=== PATIENT | female | born 1955 | race Hispanic/Latino ===

== ENCOUNTER 2017-09-13 12:30 | Inpatient (IN) | payer MEDICARE ==
[~2017-09-13] VITALS: Ht 154.9 cm; Wt 44.1 kg
[2017-09-19 15:22] VITALS: BP 117/51
[2017-09-19] MEDS ORDERED: ALBU6.7H IH (15:36)
[2017-09-19] MEDS ORDERED: ATOR20TA PO (15:36)
[2017-09-19] MEDS ORDERED: TYL3 PO (15:36)
[2017-09-19] MEDS ORDERED: CETI10TA57 PO (15:36)
[2017-09-19] MEDS ORDERED: ONDA4TAB9 PO (15:36)
[2017-09-19] MEDS ORDERED: FLUT16H NASAL (15:36)
[2017-09-19] MEDS: CLINDAMYCIN 900 MG/D5% WATER 50 ML IV SCH (16:15)
[2017-09-20] VITALS (23 sets, daily range): BP systolic 92–181; BP diastolic 46–88
[2017-09-20] MEDS ORDERED: CLINDAMYCIN 900 MG/D5% WATER 50 ML IV ONE (11:45)
[2017-09-20] MEDS ORDERED: LACTATED RINGERS 1000ML 1,000 ML IV ONE (11:45)
[2017-09-20] MEDS ORDERED: ACETAMINOPHEN EXTRA STRENGTH 500 MG TABLET ONE (13:28)
[2017-09-20] MEDS ORDERED: CELECOXIB 200 MG CAP ONE (13:29)
[2017-09-20] MEDS ORDERED: KETOROLAC TROMETHAMINE 15MG/ML ONE (13:29)
[2017-09-20] MEDS ORDERED: OXYCODONE HCL 10 MG TAB.SR.12H PO ONE (13:29)
[2017-09-20] MEDS ORDERED: CLINDAMYCIN PHOSPHATE 150 MG/ML 6ML VIAL ONE (13:55)
[2017-09-20] MEDS ORDERED: TRANEXAMIC ACID 1000MG/10ML IV ONE (13:55)
[2017-09-20] MEDS ORDERED: MIDAZOLAM HCL 1 MG/ML 2ML VIAL ONE (14:05)
[2017-09-20] MEDS ORDERED: FENTANYL CITRATE PF 50 MCG/1 ML 2ML VIAL ONE (14:07)
[2017-09-20] MEDS: CLINDAMYCIN 900 MG/D5% WATER 50 ML IV SCH (14:45)
[2017-09-20] MEDS ORDERED: DEXAMETHASONE SOD PHOSPHATE 10MG/ML 1ML VIAL ONE (16:01)
[2017-09-20] MEDS ORDERED: LIDOCAINE PF 2% 5ML ABBOJECT ONE (16:01)
[2017-09-20] MEDS ORDERED: PHENYLEPHRINE HCL 10 MG/ML 1ML VIAL IV ONE ×2 (16:01→18:14)
[2017-09-20] MEDS ORDERED: ONDANSETRON HCL MDV 20ML 2 MG/ML VIAL ONE ×2 (16:01→18:15)
[2017-09-20] MEDS ORDERED: ROCURONIUM BROMIDE 10MG/1ML 5ML VL ONE ×2 (16:01→18:14)
[2017-09-20] MEDS ORDERED: NEOSTIGMINE 5MG/5ML SYR IV ONE (18:14)
[2017-09-20] MEDS ORDERED: GLYCOPYRROLATE 0.2 MG/ML 5 ML VIAL ONE ×2 (18:14→18:15)
[2017-09-20] MEDS ORDERED: DiphenhydrAMINE HCL 50 MG/ML VIAL IVP PRN (18:15)
[2017-09-20] MEDS ORDERED: POTASSIUM CHLORIDE 20 MEQ ERTAB PO PRN (18:15)
[2017-09-20] MEDS ORDERED: ACETAMINOPHEN EXTRA STRENGTH 500 MG TABLET PO PRN (18:15)
[2017-09-20] MEDS ORDERED: POTASSIUM CHLORIDE 20MEQ/100ML 100 ML IV PRN (18:15)
[2017-09-20] MEDS ORDERED: KETOROLAC TROMETHAMINE 15MG/ML IV PRN (18:15)
[2017-09-20] MEDS ORDERED: TRAMADOL HCL 50 MG TABLET PO PRN (18:15)
[2017-09-20] MEDS ORDERED: POTASSIUM CHLORIDE 10% ELIXIR 20 MEQ/15 ML UDCUP PO PRN (18:15)
[2017-09-20] MEDS ORDERED: LIDOCAINE HCL-MPF 1% 2ML VIAL IVP PRN (18:15)
[2017-09-20] MEDS ORDERED: TEMAZEPAM 15 MG CAPSULE PO PRN (18:15)
[2017-09-20] MEDS ORDERED: CALCIUM CARBONATE 500 MG TABLET PO PRN (18:15)
[2017-09-20] MEDS ORDERED: ONDANSETRON HCL MDV 20ML 2 MG/ML VIAL IVP PRN (18:15)
[2017-09-20] MEDS ORDERED: FERROUS FUMARATE 324 MG TABLET PO PRN (18:15)
[2017-09-20] MEDS ORDERED: MEPERIDINE-PF 25 MG/ML SYG ONE (18:44)
[2017-09-20] MEDS: SODIUM CHLORIDE 0.9% 1000ML 1,000 ML IV SCH (21:09)
[2017-09-20] MEDS ORDERED: ONDANSETRON 4 MG TABLET PO PRN (21:45)
[2017-09-20] MEDS ORDERED: VENTOLIN HFA IH PRN (21:45)
[2017-09-20] MEDS: CLINDAMYCIN 900 MG/D5% WATER 50 ML IVPB SCH (22:43)
[2017-09-20] MEDS ORDERED: ACETAMINOPHEN-CODEINE 300/30MG TAB ONE (22:50)
[2017-09-20] MEDS: FAMOTIDINE 20MG TAB 20 MG TAB PO SCH (22:51)
[2017-09-20] MEDS: CELECOXIB 200 MG CAP PO SCH (22:51)
[2017-09-20] MEDS: PREGABALIN 25 MG CAP PO SCH (22:51)
[2017-09-21 00:25] VITALS: BP 107/54
[2017-09-21] MEDS: SODIUM CHLORIDE 0.9% 1000ML 1,000 ML IV SCH (03:27)
[2017-09-21 04:00] VITALS: BP 107/51
[2017-09-21 05:07] LABS: HEMATOCRIT 30.7 % (36-48); MEAN CORPUSCULAR HEMOGLOBIN 30.3 pg (27.0-33.0); MEAN CORPUSCULAR HGB CONC 33.6 g/dL (32.0-36.0); MEAN CORPUSCULAR VOLUME 90.3 fL (79-99); PLATELET COUNT (AUTO) 207 K/uL (130-400); RED BLOOD CELL COUNT(AUTO) 3.41 MIL/uL (4.00-5.50); RED CELL DISTRIBUTION WIDTH 13.7 % (11.0-15.5); WHITE BLOOD COUNT (AUTO) 13.4 K/uL (4.8-10.8)
[2017-09-21 05:25] LABS: CREATININE 1.2 mg/dL (0.5-1.5); POTASSIUM 5.2 mmol/L (3.5-5.1)
[2017-09-21] MEDS: CLINDAMYCIN 900 MG/D5% WATER 50 ML IVPB SCH (06:00)
[2017-09-21 07:36] VITALS: BP 88/50
[2017-09-21] MEDS: ATORVASTATIN CALCIUM 10 MG TABLET PO SCH (08:04)
[2017-09-21] MEDS: POLYETHYLENE GLYCOL 3350 17 GM POWD.PACK PO SCH (08:04)
[2017-09-21] MEDS: FAMOTIDINE 20MG TAB 20 MG TAB PO SCH ×2 (08:04→19:15)
[2017-09-21] MEDS: CELECOXIB 200 MG CAP PO SCH ×2 (08:04→19:15)
[2017-09-21] MEDS: PREGABALIN 25 MG CAP PO SCH ×2 (08:04→19:15)
[2017-09-21] MEDS: LORATADINE 10 MG TABLET PO SCH (08:04)
[2017-09-21] MEDS: ACETAMINOPHEN-CODEINE 300/30MG TAB PO PRN ×3 (08:07→19:16)
[2017-09-21] MEDS: FLUTICASONE PROPIONATE 50MCG/SPRAY 16 GM BOTTLE EN SCH (08:38)
[2017-09-21] MEDS: APIXABAN 2.5 MG TABLET PO SCH ×2 (09:34→19:15)
[2017-09-21 11:52] VITALS: BP 154/63
[2017-09-21 16:00] VITALS: BP 86/45
[2017-09-21 20:00] VITALS: BP 95/43
[2017-09-22 00:09] VITALS: BP 91/42
[2017-09-22] MEDS: ACETAMINOPHEN-CODEINE 300/30MG TAB PO PRN ×3 (04:08→14:58)
[2017-09-22 04:10] VITALS: BP 93/63
[2017-09-22 07:38] VITALS: BP 106/48
[2017-09-22] MEDS: CELECOXIB 200 MG CAP PO SCH (09:05)
[2017-09-22] MEDS: FAMOTIDINE 20MG TAB 20 MG TAB PO SCH (09:05)
[2017-09-22] MEDS: LORATADINE 10 MG TABLET PO SCH (09:05)
[2017-09-22] MEDS: POLYETHYLENE GLYCOL 3350 17 GM POWD.PACK PO SCH (09:05)
[2017-09-22] MEDS: PREGABALIN 25 MG CAP PO SCH (09:05)
[2017-09-22] MEDS: APIXABAN 2.5 MG TABLET PO SCH (09:05)
[2017-09-22] MEDS: ATORVASTATIN CALCIUM 10 MG TABLET PO SCH (09:05)
[2017-09-22] MEDS: FLUTICASONE PROPIONATE 50MCG/SPRAY 16 GM BOTTLE EN SCH (09:06)
[2017-09-22 11:17] VITALS: BP 93/52
[2017-09-22] MEDS ORDERED: BISACODYL 10 MG SUPP.RECT RC ONE (15:27)
[2017-09-22 16:12] VITALS: BP 122/45
[2017-09-22] MEDS ORDERED: APIX2.5T PO (16:17)
[2017-09-22] MEDS ORDERED: TYL3 PO (16:17)
[2017-09-23] MEDS ORDERED: BISACODYL 10 MG SUPP.RECT RC PRN (18:15)
== END 2017-09-22 19:45 | disposition home health service (06) | DRG 470 ==
LOC: EDSTATUS 09-19 14:30 → DAHIP 09-20 11:04 → 4AH 09-20 19:40
PROVIDERS: ADMIT Orthopaedic Surgery; ATTEND Orthopaedic Surgery
PROC: 0SR90JZ Replacement of Right Hip Joint with Synthetic Substitute, Open Approach (ICD-10-PCS; principal; 2017-09-20 14:35)
DX: M87.851 Other osteonecrosis, right femur (principal); E78.2 Mixed hyperlipidemia; G89.4 Chronic pain syndrome; I10 Essential (primary) hypertension; J45.909 Unspecified asthma, uncomplicated; Z82.49 Family history of ischemic heart disease and other diseases of the circulatory system
CPT/HCPCS: 36415; 73503; 80048; 85027; 88304; 88311; 96374; 97039; C1776; J1100; J1885; J2001; J2175; J2250; J2370; J2710; J3010; J3490; J7120

== ENCOUNTER → 2018-10-16 | Outpatient (CLI) | payer MEDICARE ==
[~2018-10-16] MED LIST: ALBU6.7H IH; APIX2.5T PO; ATOR20TA PO; CETI10TA57 PO; FLUT16H NASAL; ONDA4TAB9 PO; TYL3 PO
== END | disposition home or self-care (01) ==
LOC: RAH 10:36
PROVIDERS: ATTEND Anesthesiology
DX: M51.15 Intervertebral disc disorders with radiculopathy, thoracolumbar region (principal)
CPT/HCPCS: 72148

== ENCOUNTER → 2020-06-11 | Outpatient (CLI) | payer MEDICARE ==
[~2020-06-11] VITALS: Ht 152.4 cm; Wt 51.3 kg
[~2020-06-11] MED LIST changes: -ALBU6.7H IH; +ALBU6.7H9 IH; +ONDA-104 PO; -ONDA4TAB9 PO; +REGADENOSON 0.4 MG/5 ML PF SYG IVP SCH
== END | disposition home or self-care (01) ==
LOC: SHCH 07:30
PROVIDERS: ATTEND Internal Medicine Cardiovascular Disease
DX: R07.9 Chest pain, unspecified (principal)
CPT/HCPCS: 78452; 93017; 96374; A9500 ×2; J2785

== ENCOUNTER → 2020-08-05 | Outpatient (CLI) | payer MEDICARE ==
[~2020-08-05] MED LIST changes: +IOHEXOL-350 50ML VIAL IV ONE; -REGADENOSON 0.4 MG/5 ML PF SYG IVP SCH
== END | disposition home or self-care (01) ==
LOC: RAH 08:35
PROVIDERS: ATTEND Internal Medicine Cardiovascular Disease
DX: I70.8 Atherosclerosis of other arteries (principal); K57.30 Diverticulosis of large intestine without perforation or abscess without bleeding; I70.0 Atherosclerosis of aorta; I71.3 Abdominal aortic aneurysm, ruptured
CPT/HCPCS: 75635; Q9967

== ENCOUNTER 2020-08-17 05:45 | Inpatient (IN) | payer MEDICARE ==
[2020-08-14 12:11] LABS: BASOPHILS % (AUTO) 0.4 % (0.0-5.0); EOSINOPHILS % (AUTO) 3.1 % (0.0-8.0); HEMATOCRIT 33.5 % (36-48); LYMPHOCYTES % (AUTO) 28.6 % (21.0-51.0); MEAN CORPUSCULAR HEMOGLOBIN 28.5 pg (27.0-33.0); MEAN CORPUSCULAR HGB CONC 32.5 g/dL (32.0-36.0); MEAN CORPUSCULAR VOLUME 87.7 fL (79-99); MONOCYTES % (AUTO) 5.9 % (3.0-13.0); NEUTROPHILS % (AUTO) 61.8 % (40.0-77.0); PLATELET COUNT (AUTO) 307 K/uL (130-400); RED BLOOD CELL COUNT(AUTO) 3.82 MIL/uL (4.00-5.50); RED CELL DISTRIBUTION WIDTH 14.6 % (11.0-15.5); WHITE BLOOD COUNT (AUTO) 8.2 K/uL (4.8-10.8)
[2020-08-14 12:19] LABS: CREATININE 0.9 mg/dL (0.5-1.5); POTASSIUM 4.2 mmol/L (3.5-5.1)
[2020-08-14 14:48] VITALS: BP 132/48
[2020-08-17] VITALS (13 sets, daily range): BP systolic 95–125; BP diastolic 32–57
[~2020-08-17] VITALS: Ht 152.4 cm; Wt 51.8 kg
[~2020-08-17 05:45] MED LIST changes: +AEC81 PO; -ALBU6.7H9 IH; -APIX2.5T PO; -ATOR20TA PO; +ATOR40TA69 PO; -FLUT16H NASAL; -IOHEXOL-350 50ML VIAL IV ONE; +METO50TA18 PO; -ONDA-104 PO; +TICA90TA PO
[2020-08-17] MEDS ORDERED: 0.9%NACL 1000ML 1,000 ML IV ONE (06:28)
[2020-08-17] MEDS ORDERED: LIDOCAINE HCL 2% JELLY 5 ML ONE (06:28)
[2020-08-17] MEDS ORDERED: HEPARIN 10,000 UNIT/10ML (1,000 UNIT/ML) VIAL ONE (07:20)
[2020-08-17] MEDS ORDERED: IODIXANOL 320 MG/ML 100 ML VIAL ONE ×2 (07:20→08:49)
[2020-08-17] MEDS ORDERED: NICARDIPINE 25MG INJ IV ONE (07:20)
[2020-08-17] MEDS ORDERED: NITROGLYCERIN 2 MG VIAL IV ONE (07:20)
[2020-08-17] MEDS ORDERED: LIDOCAINE HCL 400MG/20ML VIAL ONE ×2 (07:21→09:17)
[2020-08-17] MEDS ORDERED: FENTANYL CITRATE PF 50 MCG/1 ML 2ML VIAL ONE ×2 (07:21→08:31)
[2020-08-17] MEDS ORDERED: MIDAZOLAM HCL 1 MG/ML 2ML VIAL ONE ×3 (07:21→10:16)
[2020-08-17] MEDS ORDERED: ONDANSETRON 4MG INJ IVP PRN (12:00)
[2020-08-17] MEDS ORDERED: ASPIRIN 81MG CHEW TAB ONE (12:21)
[2020-08-17] MEDS ORDERED: TICAGRELOR 90 MG TABLET ONE (12:21)
[2020-08-17] MEDS ORDERED: MORPHINE 5 MG/ML VIAL (5MG OR GREATER DOSE) IVP SCH (14:18)
[2020-08-17] MEDS ORDERED: MORPHINE 4 MG SYG IVP SCH (14:19)
[2020-08-17] MEDS: ACETAMINOPHEN WITH CODEINE 1 TAB TAB PO PRN (14:46)
[2020-08-17] MEDS ORDERED: HYDROMORPHONE 0.5 MG SYG (0.5MG/0.5ML) IVP PRN (15:45)
[2020-08-17] MEDS ORDERED: 0.9% NACL 250ML 250 ML IV ONE (17:28)
[2020-08-17] MEDS: METOPROLOL TARTRATE 50 MG TAB PO SCH (21:00)
[2020-08-17] MEDS: ATORVASTATIN 40 MG TABLET PO SCH (22:41)
[2020-08-17] MEDS: TICAGRELOR 90 MG TABLET PO SCH (22:41)
[2020-08-18 04:34] VITALS: BP 102/41
[2020-08-18 04:59] LABS: HEMATOCRIT 24.7 % (36-48); MEAN CORPUSCULAR VOLUME 87.6 fL (79-99); RED BLOOD CELL COUNT(AUTO) 2.82 MIL/uL (4.00-5.50); WHITE BLOOD COUNT (AUTO) 7.3 K/uL (4.8-10.8)
[2020-08-18 05:16] LABS: CREATININE 1.2 mg/dL (0.5-1.5); POTASSIUM 3.7 mmol/L (3.5-5.1)
[2020-08-18] MEDS: PANTOPRAZOLE 40 MG TAB DR PO SCH (08:01)
[2020-08-18] MEDS: TICAGRELOR 90 MG TABLET PO SCH ×2 (08:01→21:48)
[2020-08-18] MEDS: ASPIRIN 81MG CHEW TAB PO SCH (08:01)
[2020-08-18 08:55] VITALS: BP 101/28
[2020-08-18] MEDS: METOPROLOL TARTRATE 50 MG TAB PO SCH (09:00)
[2020-08-18 10:25] LABS: HEMATOCRIT 24.7 % (36-48)
[2020-08-18] MEDS ORDERED: IRON SUCROSE COMPLEX 300 MG in 0.9%NACL 50ML 50 ML IV SCH (10:45)
[2020-08-18] MEDS ORDERED: COMPOUND IV MISC 1 EACH IVSOLN MISC PRN (10:45)
[2020-08-18] MEDS ORDERED: PHARMACY COMMUNICATION MISC SCH (10:45)
[2020-08-18 12:22] VITALS: BP 108/39
[2020-08-18 15:27] VITALS: BP 130/39
[2020-08-18] MEDS: ACETAMINOPHEN WITH CODEINE 1 TAB TAB PO PRN ×2 (16:15→20:10)
[2020-08-18 19:42] VITALS: BP 120/50
[2020-08-18] MEDS: ATORVASTATIN 40 MG TABLET PO SCH (21:48)
[2020-08-19] VITALS (10 sets, daily range): BP systolic 63–113; BP diastolic 32–50
[2020-08-19] MEDS ORDERED: KETOROLAC 30MG VIAL (30MG/ML) ONE (00:15)
[2020-08-19] MEDS: KETOROLAC 15MG/ML VIAL (15MG/ML) IV SCH ×2 (00:15→19:46)
[2020-08-19] MEDS: METOPROLOL TARTRATE 25 MG TAB PO SCH ×2 (01:37→07:52)
[2020-08-19] MEDS ORDERED: 0.9% NACL 500ML IV.SOLN 500 ML IV ONE (05:07)
[2020-08-19 05:09] LABS: HEMATOCRIT 22.4 % (36-48)
[2020-08-19 08:14] LABS: BASOPHILS % (AUTO) 0.2 % (0.0-5.0); EOSINOPHILS % (AUTO) 1.8 % (0.0-8.0); LYMPHOCYTES % (AUTO) 12.6 % (21.0-51.0); MEAN CORPUSCULAR HEMOGLOBIN 28.9 pg (27.0-33.0); MEAN CORPUSCULAR HGB CONC 32.7 g/dL (32.0-36.0); MEAN CORPUSCULAR VOLUME 88.1 fL (79-99); MONOCYTES % (AUTO) 3.5 % (3.0-13.0); NEUTROPHILS % (AUTO) 81.6 % (40.0-77.0); PLATELET COUNT (AUTO) 156 K/uL (130-400); RED BLOOD CELL COUNT(AUTO) 2.53 MIL/uL (4.00-5.50); RED CELL DISTRIBUTION WIDTH 15.4 % (11.0-15.5)
[2020-08-19 08:20] LABS: CREATININE 1.3 mg/dL (0.5-1.5); POTASSIUM 3.8 mmol/L (3.5-5.1)
[2020-08-19] MEDS: ASPIRIN 81MG CHEW TAB PO SCH (09:37)
[2020-08-19] MEDS: TICAGRELOR 90 MG TABLET PO SCH ×2 (09:37→20:59)
[2020-08-19] MEDS: PANTOPRAZOLE 40 MG TAB DR PO SCH (09:37)
[2020-08-19] MEDS: ACETAMINOPHEN WITH CODEINE 1 TAB TAB PO PRN ×2 (16:51→21:10)
[2020-08-19 17:55] LABS: TROPONIN I 0.06 ng/mL (0.00-0.06)
[2020-08-19] MEDS: ATORVASTATIN 40 MG TABLET PO SCH (21:00)
[2020-08-20 03:33] VITALS: BP 116/83
[2020-08-20 05:27] LABS: BASOPHILS % (AUTO) 0.1 % (0.0-5.0); EOSINOPHILS % (AUTO) 1.6 % (0.0-8.0); HEMATOCRIT 34.2 % (36-48); LYMPHOCYTES % (AUTO) 9.3 % (21.0-51.0); MEAN CORPUSCULAR HEMOGLOBIN 28.8 pg (27.0-33.0); MEAN CORPUSCULAR HGB CONC 32.7 g/dL (32.0-36.0); MEAN CORPUSCULAR VOLUME 87.9 fL (79-99); MONOCYTES % (AUTO) 5.3 % (3.0-13.0); NEUTROPHILS % (AUTO) 83.1 % (40.0-77.0); PLATELET COUNT (AUTO) 156 K/uL (130-400); RED BLOOD CELL COUNT(AUTO) 3.89 MIL/uL (4.00-5.50); RED CELL DISTRIBUTION WIDTH 15.5 % (11.0-15.5); WHITE BLOOD COUNT (AUTO) 10.9 K/uL (4.8-10.8)
[2020-08-20 05:30] LABS: CREATININE 1.1 mg/dL (0.5-1.5)
[2020-08-20] MEDS: CETIRIZINE HCL 5 MG TABLET PO PRN (07:53)
[2020-08-20] MEDS: TICAGRELOR 90 MG TABLET PO SCH ×2 (07:53→20:54)
[2020-08-20] MEDS: ACETAMINOPHEN WITH CODEINE 1 TAB TAB PO PRN ×3 (07:54→23:14)
[2020-08-20] MEDS: PANTOPRAZOLE 40 MG TAB DR PO SCH (07:54)
[2020-08-20] MEDS: ASPIRIN 81MG CHEW TAB PO SCH (07:54)
[2020-08-20 08:09] VITALS: BP 146/50
[2020-08-20 09:01] LABS: HEMATOCRIT 28.2 % (36-48); MEAN CORPUSCULAR HEMOGLOBIN 28.7 pg (27.0-33.0); MEAN CORPUSCULAR HGB CONC 33.3 g/dL (32.0-36.0); RED BLOOD CELL COUNT(AUTO) 3.28 MIL/uL (4.00-5.50); RED CELL DISTRIBUTION WIDTH 15.2 % (11.0-15.5); WHITE BLOOD COUNT (AUTO) 9.4 K/uL (4.8-10.8)
[2020-08-20 09:11] LABS: CREATININE 1.2 mg/dL (0.5-1.5); POTASSIUM 3.7 mmol/L (3.5-5.1)
[2020-08-20 09:45] LABS: APPEARANCE,URINE TURBID (CLEAR); BILIRUBIN,URINE NEGATIVE (NEGATIVE); COLOR,URINE YELLOW (YELLOW); GLUCOSE, URINE (UA) NEGATIVE (NEGATIVE); KETONES,URINE NEGATIVE (NEGATIVE); LEUKOCYTE ESTERASE ,URINE LARGE (NEGATIVE); NITRATE,URINE NEGATIVE (NEGATIVE); OCCULT BLOOD,URINE MODERATE (NEGATIVE); PH,URINE 5.5 (5.0-8.0); PROTEIN,URINE 30 mg/dL (NEGATIVE); UROBILINOGEN,URINE 0.2 mg/dL (0.2-1.0)
[2020-08-20 09:52] LABS: BACTERIA,URINE Many /HPF (None Seen); SQUAMOUS EPITHELIAL CELL,UR Rare /HPF (0-2); WBC,URINE TNTC /HPF (0-1)
[2020-08-20] MEDS: LEVOFLOXACIN 500 MG/D5W 100 ML 100 ML IV SCH (11:24)
[2020-08-20 11:58] VITALS: BP 101/36
[2020-08-20 16:15] VITALS: BP 135/41
[2020-08-20 19:08] VITALS: BP 96/30
[2020-08-20] MEDS: ATORVASTATIN 40 MG TABLET PO SCH (20:54)
[2020-08-20 22:56] VITALS: BP 114/41
[2020-08-20] MEDS: KETOROLAC 15MG/ML VIAL (15MG/ML) IV SCH (23:20)
[2020-08-21 03:50] VITALS: BP 119/62
[2020-08-21] MEDS: ACETAMINOPHEN WITH CODEINE 1 TAB TAB PO PRN ×4 (04:00→21:54)
[2020-08-21 05:18] LABS: BASOPHILS % (AUTO) 0.1 % (0.0-5.0); EOSINOPHILS % (AUTO) 1.3 % (0.0-8.0); HEMATOCRIT 32.2 % (36-48); LYMPHOCYTES % (AUTO) 10.9 % (21.0-51.0); MEAN CORPUSCULAR HGB CONC 33.2 g/dL (32.0-36.0); MEAN CORPUSCULAR VOLUME 87.3 fL (79-99); MONOCYTES % (AUTO) 7.7 % (3.0-13.0); NEUTROPHILS % (AUTO) 79.4 % (40.0-77.0); PLATELET COUNT (AUTO) 154 K/uL (130-400); RED BLOOD CELL COUNT(AUTO) 3.69 MIL/uL (4.00-5.50); RED CELL DISTRIBUTION WIDTH 15.8 % (11.0-15.5); WHITE BLOOD COUNT (AUTO) 9.9 K/uL (4.8-10.8)
[2020-08-21 05:34] LABS: CREATININE 1.2 mg/dL (0.5-1.5); MAGNESIUM 1.9 mg/dL (1.80-2.40); PHOSPHORUS 2.5 mg/dL (2.5-4.9); POTASSIUM 4.2 mmol/L (3.5-5.1)
[2020-08-21 08:00] VITALS: BP 143/68
[2020-08-21] MEDS ORDERED: IPRATROPIUM/ALBUTEROL SULFATE 3 ML SOLUTION IH PRN (08:15)
[2020-08-21] MEDS: PANTOPRAZOLE 40 MG TAB DR PO SCH (08:21)
[2020-08-21] MEDS: TICAGRELOR 90 MG TABLET PO SCH ×2 (08:22→21:53)
[2020-08-21] MEDS: CETIRIZINE HCL 5 MG TABLET PO PRN (08:22)
[2020-08-21] MEDS: ASPIRIN 81MG CHEW TAB PO SCH (08:22)
[2020-08-21] MEDS: LEVOFLOXACIN 500 MG/D5W 100 ML 100 ML IV SCH (08:25)
[2020-08-21 08:46] LABS: CREATINE KINASE, TOTAL 159 U/L (21-232); MYOGLOBIN 75 ng/mL (10-92)
[2020-08-21] MEDS ORDERED: METOPROLOL TARTRATE 25 MG TAB PO SCH (09:00)
[2020-08-21 12:00] VITALS: BP 101/34
[2020-08-21] MEDS: METOPROLOL TARTRATE 25 MG TAB PO SCH ×2 (12:00→21:53)
[2020-08-21 16:00] VITALS: BP 136/53
[2020-08-21 17:12] LABS: ABG BASE EXCESS -4.2 mmol/L (-2.0-3.0); ABG HCO3 17.6 mmol/L (21.0-28.0); ABG OXYGEN SATURATION 93.5 % (95.0-99.0); ABG PCO2 25 mmHg (32-45)
[2020-08-21] MEDS: IPRATROPIUM/ALBUTEROL SULFATE 3 ML SOLUTION IH SCH (19:31)
[2020-08-21 20:08] VITALS: BP 134/50
[2020-08-21] MEDS: ATORVASTATIN 40 MG TABLET PO SCH (21:53)
[2020-08-22] VITALS (7 sets, daily range): BP systolic 115–134; BP diastolic 32–68
[2020-08-22] MEDS: IPRATROPIUM/ALBUTEROL SULFATE 3 ML SOLUTION IH SCH ×5 (00:07→23:32)
[2020-08-22] MEDS: KETOROLAC 15MG/ML VIAL (15MG/ML) IV SCH (00:49)
[2020-08-22] MEDS ORDERED: KETOROLAC 30MG VIAL (30MG/ML) ONE (00:52)
[2020-08-22] MEDS: LEVOFLOXACIN 500 MG/D5W 100 ML 100 ML IV SCH (08:29)
[2020-08-22] MEDS: CETIRIZINE HCL 5 MG TABLET PO PRN (08:30)
[2020-08-22] MEDS: PANTOPRAZOLE 40 MG TAB DR PO SCH (08:30)
[2020-08-22] MEDS: ACETAMINOPHEN WITH CODEINE 1 TAB TAB PO PRN ×2 (08:31→20:51)
[2020-08-22] MEDS: ASPIRIN 81MG CHEW TAB PO SCH (08:32)
[2020-08-22] MEDS: TICAGRELOR 90 MG TABLET PO SCH ×2 (08:32→20:51)
[2020-08-22] MEDS: METOPROLOL TARTRATE 25 MG TAB PO SCH ×2 (08:33→20:51)
[2020-08-22] MEDS: ATORVASTATIN 40 MG TABLET PO SCH (20:51)
[2020-08-23] MEDS: KETOROLAC 15MG/ML VIAL (15MG/ML) IV SCH (00:15)
[2020-08-23] MEDS: ACETAMINOPHEN WITH CODEINE 1 TAB TAB PO PRN ×2 (02:52→20:05)
[2020-08-23 03:00] VITALS: BP 102/51
[2020-08-23 05:21] LABS: BASOPHILS % (AUTO) 0.3 % (0.0-5.0); EOSINOPHILS % (AUTO) 4.1 % (0.0-8.0); HEMATOCRIT 27.9 % (36-48); LYMPHOCYTES % (AUTO) 20.2 % (21.0-51.0); MEAN CORPUSCULAR HEMOGLOBIN 28.9 pg (27.0-33.0); MEAN CORPUSCULAR HGB CONC 33.3 g/dL (32.0-36.0); MEAN CORPUSCULAR VOLUME 86.6 fL (79-99); MONOCYTES % (AUTO) 6.8 % (3.0-13.0); NEUTROPHILS % (AUTO) 68.2 % (40.0-77.0); PLATELET COUNT (AUTO) 211 K/uL (130-400); RED BLOOD CELL COUNT(AUTO) 3.22 MIL/uL (4.00-5.50); RED CELL DISTRIBUTION WIDTH 15.6 % (11.0-15.5); WHITE BLOOD COUNT (AUTO) 7.2 K/uL (4.8-10.8)
[2020-08-23 05:33] LABS: POTASSIUM 3.8 mmol/L (3.5-5.1)
[2020-08-23] MEDS: TICAGRELOR 90 MG TABLET PO SCH ×2 (07:04→20:04)
[2020-08-23] MEDS: PANTOPRAZOLE 40 MG TAB DR PO SCH (07:04)
[2020-08-23] MEDS: LEVOFLOXACIN 500 MG/D5W 100 ML 100 ML IV SCH (07:04)
[2020-08-23] MEDS: METOPROLOL TARTRATE 25 MG TAB PO SCH ×2 (07:05→20:04)
[2020-08-23] MEDS: ASPIRIN 81MG CHEW TAB PO SCH (07:05)
[2020-08-23] MEDS: IPRATROPIUM/ALBUTEROL SULFATE 3 ML SOLUTION IH SCH ×4 (07:12→23:20)
[2020-08-23 08:00] VITALS: BP 98/31
[2020-08-23 12:00] VITALS: BP 110/36
[2020-08-23 16:00] VITALS: BP 111/31
[2020-08-23] MEDS: ATORVASTATIN 40 MG TABLET PO SCH (20:04)
[2020-08-23 21:22] VITALS: BP 117/51
[2020-08-24 00:30] VITALS: BP 105/54
[2020-08-24 04:50] LABS: BASOPHILS % (AUTO) 0.3 % (0.0-5.0); EOSINOPHILS % (AUTO) 4.4 % (0.0-8.0); HEMATOCRIT 29.4 % (36-48); LYMPHOCYTES % (AUTO) 22.3 % (21.0-51.0); MEAN CORPUSCULAR HGB CONC 31.3 g/dL (32.0-36.0); MEAN CORPUSCULAR VOLUME 89.6 fL (79-99); MONOCYTES % (AUTO) 6.7 % (3.0-13.0); NEUTROPHILS % (AUTO) 65.6 % (40.0-77.0); PLATELET COUNT (AUTO) 275 K/uL (130-400); RED BLOOD CELL COUNT(AUTO) 3.28 MIL/uL (4.00-5.50); RED CELL DISTRIBUTION WIDTH 15.5 % (11.0-15.5)
[2020-08-24 05:13] VITALS: BP 103/41
[2020-08-24 05:28] LABS: POTASSIUM 3.9 mmol/L (3.5-5.1)
[2020-08-24] MEDS: IPRATROPIUM/ALBUTEROL SULFATE 3 ML SOLUTION IH SCH ×2 (07:08→13:16)
[2020-08-24 07:30] VITALS: BP 102/44
[2020-08-24] MEDS: PANTOPRAZOLE 40 MG TAB DR PO SCH (08:44)
[2020-08-24] MEDS: ASPIRIN 81MG CHEW TAB PO SCH (08:44)
[2020-08-24] MEDS: TICAGRELOR 90 MG TABLET PO SCH (08:44)
[2020-08-24] MEDS: METOPROLOL TARTRATE 25 MG TAB PO SCH (08:44)
[2020-08-24] MEDS: LEVOFLOXACIN 500 MG/D5W 100 ML 100 ML IV SCH (08:45)
[2020-08-24] MEDS ORDERED: LEVO500T90 PO (09:28)
[2020-08-24 11:00] VITALS: BP 109/46
[2020-08-24] MEDS ORDERED: ACET1TAB25 PO (15:31)
== END 2020-08-24 16:10 | disposition home or self-care (01) | DRG 253 ==
LOC: DAH 05:45 → DAHIP 05:46 → OBSVTOIN 05:46 → 4CH 13:14
PROVIDERS: ADMIT Internal Medicine; ATTEND Internal Medicine
PROC: B4101ZZ Fluoroscopy of Abdominal Aorta using Low Osmolar Contrast (ICD-10-PCS; principal; 2020-08-17)
PROC: 04FD3ZZ Fragmentation of Left Common Iliac Artery, Percutaneous Approach (ICD-10-PCS; 2020-08-17)
PROC: 04FJ3ZZ Fragmentation of Left External Iliac Artery, Percutaneous Approach (ICD-10-PCS; 2020-08-17)
PROC: 04FL3ZZ Fragmentation of Left Femoral Artery, Percutaneous Approach (ICD-10-PCS; 2020-08-17)
PROC: 047D3DZ Dilation of Left Common Iliac Artery with Intraluminal Device, Percutaneous Approach (ICD-10-PCS; 2020-08-17)
PROC: 047J34Z Dilation of Left External Iliac Artery with Drug-eluting Intraluminal Device, Percutaneous Approach (ICD-10-PCS; 2020-08-17)
PROC: 047L341 Dilation of Left Femoral Artery with Drug-eluting Intraluminal Device, using Drug-Coated Balloon, Percutaneous Approach (ICD-10-PCS; 2020-08-17)
PROC: 30233N1 Transfusion of Nonautologous Red Blood Cells into Peripheral Vein, Percutaneous Approach (ICD-10-PCS; 2020-08-19)
DX: I73.9 Peripheral vascular disease, unspecified (principal); D62 Acute posthemorrhagic anemia; N39.0 Urinary tract infection, site not specified; E78.5 Hyperlipidemia, unspecified; B96.1 Klebsiella pneumoniae [K. pneumoniae] as the cause of diseases classified elsewhere; B96.89 Other specified bacterial agents as the cause of diseases classified elsewhere; G89.4 Chronic pain syndrome; I10 Essential (primary) hypertension; I25.10 Atherosclerotic heart disease of native coronary artery without angina pectoris; I25.2 Old myocardial infarction; J44.9 Chronic obstructive pulmonary disease, unspecified; Z79.82 Long term (current) use of aspirin; Z86.73 Personal history of transient ischemic attack (TIA), and cerebral infarction without residual deficits; Z95.5 Presence of coronary angioplasty implant and graft; M54.5 Low back pain; Z88.6 Allergy status to analgesic agent; Z88.0 Allergy status to penicillin; Z88.8 Allergy status to other drugs, medicaments and biological substances; R00.0 Tachycardia, unspecified; R06.00 Dyspnea, unspecified
CPT/HCPCS: 36415; 36430; 36600; 37221; 71045; 75630; 76705; 80048; 80061; 81001; 82040; 82550; 82803; 82948; 83605; 83735; 83874; 83880; 84100; 84484; 85014; 85018; 85025; 85027; 85347; 85730; 86850; 86900; 86901; 86923; 87040; 87077; 87088; 87186; 93005; 93306; 93356; 94640; 94664; 94760; 97039; 99156; 99157; A4606; C1725; C1760; C1769; C1887; C1894; C9765; G0378; J1170; J1644; J1756; J1885; J1956; J2250; J2405; J3010; J3490; J7030; J7040; J7050; P9016; Q9967

== ENCOUNTER 2021-06-21 06:48 | Day surgery (SDC) | payer OTHER, MEDICARE ==
[2021-06-17 10:53] LABS: APPEARANCE,URINE Clear (CLEAR); BILIRUBIN,URINE Negative (NEGATIVE); COLOR,URINE Dark Yellow (YELLOW); GLUCOSE, URINE (UA) Negative (NEGATIVE); KETONES,URINE Trace mg/dL (NEGATIVE); LEUKOCYTE ESTERASE ,URINE Small (NEGATIVE); NITRATE,URINE Positive (NEGATIVE); OCCULT BLOOD,URINE Negative (NEGATIVE); PH,URINE 5.5 (5.0-8.0); PROTEIN,URINE POS 2+ mg/dL (NEGATIVE)
[2021-06-17 10:53] LABS: BASOPHILS % (AUTO) 0.2 % (0.0-5.0); EOSINOPHILS % (AUTO) 3.3 % (0.0-8.0); HEMATOCRIT 30.8 % (36-48); LYMPHOCYTES % (AUTO) 16.3 % (21.0-51.0); MEAN CORPUSCULAR HEMOGLOBIN 27.5 pg (27.0-33.0); MEAN CORPUSCULAR HGB CONC 32.8 g/dL (32.0-36.0); MEAN CORPUSCULAR VOLUME 83.9 fL (79-99); MONOCYTES % (AUTO) 6.5 % (3.0-13.0); NEUTROPHILS % (AUTO) 73.3 % (40.0-77.0); PLATELET COUNT (AUTO) 455 K/uL (130-400); RED BLOOD CELL COUNT(AUTO) 3.67 MIL/uL (4.00-5.50); WHITE BLOOD COUNT (AUTO) 9.2 K/uL (4.8-10.8)
[2021-06-17 11:09] LABS: CREATININE 0.8 mg/dL (0.5-1.5); POTASSIUM 3.5 mmol/L (3.5-5.1)
[2021-06-17 11:30] LABS: BACTERIA,URINE Many /HPF (None Seen); MUCUS,URINE Few LPF (None Seen); RBC,URINE 0-1 /HPF (0-1); SQUAMOUS EPITHELIAL CELL,UR Few /HPF (0-2)
[2021-06-17 11:36] LABS: INR 1.09 (0.85-1.15); PROTHROMBIN TIME 11.8 SEC (9.6-11.6)
[2021-06-17 11:37] LABS: PARTIAL THROMBOPLASTIN TIME 30.6 SEC (26.3-35.5)
[2021-06-18 14:07] VITALS: BP 136/50
[~2021-06-21] VITALS: Ht 152.4 cm; Wt 7.0 kg
[~2021-06-21 06:48] MED LIST changes: +ALBU0.63 IH; +ALBU6.7H9 IH; +DIFL5DRO OP; +MV-M1TAB20 PO; +TIZA-194 PO; -TYL3 PO
== END 2021-06-21 13:56 | disposition home or self-care (01) ==
LOC: DAH 06:48
PROVIDERS: ATTEND Internal Medicine Cardiovascular Disease
DX: I73.9 Peripheral vascular disease, unspecified (principal); Z79.01 Long term (current) use of anticoagulants; J45.909 Unspecified asthma, uncomplicated; E78.2 Mixed hyperlipidemia; I25.10 Atherosclerotic heart disease of native coronary artery without angina pectoris; I25.2 Old myocardial infarction; Z79.899 Other long term (current) drug therapy; Z88.0 Allergy status to penicillin; Z86.73 Personal history of transient ischemic attack (TIA), and cerebral infarction without residual deficits; Z87.891 Personal history of nicotine dependence; Z82.49 Family history of ischemic heart disease and other diseases of the circulatory system; Z98.890 Other specified postprocedural states; Z83.49 Family history of other endocrine, nutritional and metabolic diseases; Z88.8 Allergy status to other drugs, medicaments and biological substances; Z53.8 Procedure and treatment not carried out for other reasons
CPT/HCPCS: 36415; 71045; 80048; 81001; 85025; 85610; 85730; 87077; 87088; 87186; 93005; A4215; A4216; A4221; A4222; A4223; A4663

== ENCOUNTER 2021-08-16 06:36 | Observation (INO) | payer OTHER, MEDICARE ==
[2021-08-12 09:35] VITALS: BP 166/59
[2021-08-12 10:06] LABS: BASOPHILS % (AUTO) 0.3 % (0.0-5.0); EOSINOPHILS % (AUTO) 3.6 % (0.0-8.0); HEMATOCRIT 36.3 % (36-48); LYMPHOCYTES % (AUTO) 24.6 % (21.0-51.0); MEAN CORPUSCULAR HEMOGLOBIN 27.6 pg (27.0-33.0); MEAN CORPUSCULAR HGB CONC 31.1 g/dL (32.0-36.0); MEAN CORPUSCULAR VOLUME 88.5 fL (79-99); MONOCYTES % (AUTO) 6.1 % (3.0-13.0); NEUTROPHILS % (AUTO) 64.9 % (40.0-77.0); PLATELET COUNT (AUTO) 340 K/uL (130-400); RED CELL DISTRIBUTION WIDTH 15.5 % (11.0-15.5); WHITE BLOOD COUNT (AUTO) 8.9 K/uL (4.8-10.8)
[2021-08-12 10:15] LABS: POTASSIUM 4.4 mmol/L (3.5-5.1)
[2021-08-12 10:17] LABS: APPEARANCE,URINE Cloudy (CLEAR); BILIRUBIN,URINE Negative (NEGATIVE); COLOR,URINE Yellow (YELLOW); GLUCOSE, URINE (UA) Negative (NEGATIVE); KETONES,URINE Trace mg/dL (NEGATIVE); LEUKOCYTE ESTERASE ,URINE Moderate (NEGATIVE); NITRATE,URINE Negative (NEGATIVE); OCCULT BLOOD,URINE Negative (NEGATIVE); PH,URINE 5.5 (5.0-8.0); PROTEIN,URINE POS 2+ mg/dL (NEGATIVE); UROBILINOGEN,URINE 0.2 mg/dL (0.2-1.0)
[2021-08-12 10:27] LABS: PROTHROMBIN TIME 10.9 SEC (9.6-11.6)
[2021-08-12 10:28] LABS: PARTIAL THROMBOPLASTIN TIME 28.7 SEC (26.3-35.5)
[2021-08-12 10:30] LABS: BACTERIA,URINE Moderate /HPF (None Seen); RBC,URINE 0-1 /HPF (0-1); WBC,URINE 26-50 /HPF (0-1)
[2021-08-12 10:31] LABS: MUCUS,URINE Rare LPF (None Seen); SQUAMOUS EPITHELIAL CELL,UR Rare /HPF (0-2)
[2021-08-16] VITALS (22 sets, daily range): BP systolic 79–162; BP diastolic 35–62
[~2021-08-16] VITALS: Ht 152.4 cm; Wt 52.1 kg
[~2021-08-16 06:36] MED LIST changes: +FERR-72 PO; +MECL-160 PO
[2021-08-16] MEDS ORDERED: 0.9%NACL 1000ML 1,000 ML IV ONE (08:11)
[2021-08-16] MEDS ORDERED: SODIUM BICARB 50MEQ 50ML VIAL 50 ML ONE (10:04)
[2021-08-16] MEDS ORDERED: NITROGLYCERIN 50MG VIAL ONE (10:04)
[2021-08-16] MEDS ORDERED: MEPERIDINE-PF 25 MG/ML SYG ONE (10:04)
[2021-08-16] MEDS ORDERED: MIDAZOLAM HCL 1 MG/ML 2ML VIAL ONE ×2 (10:04→12:06)
[2021-08-16] MEDS ORDERED: HEPARIN 10,000 UNIT/10ML (1,000 UNIT/ML) VIAL ONE (10:05)
[2021-08-16] MEDS ORDERED: IODIXANOL 320 MG/ML 100 ML VIAL ONE (10:07)
[2021-08-16] MEDS ORDERED: VANCOMYCIN 1G/250ML KIT 250 ML IV ONE (11:03)
[2021-08-16] MEDS ORDERED: FENTANYL CITRATE PF 50 MCG/1 ML 2ML VIAL ONE (11:07)
[2021-08-16] MEDS ORDERED: BACTRIM IV SCH (11:23)
[2021-08-16] MEDS ORDERED: NACL 0.9% IV SCH (11:23)
[2021-08-16] MEDS ORDERED: PHARMACY COMMUNICATION MISC SCH (11:30)
[2021-08-16] MEDS ORDERED: LIDOCAINE HCL 1% MDV 50ML VIAL ONE (12:18)
[2021-08-16] MEDS ORDERED: ASPIRIN 325MG EC TAB PO ONE (13:40)
[2021-08-16] MEDS ORDERED: TICAGRELOR 90 MG TABLET ONE (13:40)
[2021-08-16] MEDS ORDERED: GLUCAGON 1MG KIT 1 MG ML IM PRN (14:00)
[2021-08-16] MEDS ORDERED: DEXTROSE 50%-WATER 50 ML DISP.SYRIN IV PRN (14:00)
[2021-08-16] MEDS ORDERED: ATROPINE 1MG SYG IVP ONE (15:30)
[2021-08-16] MEDS ORDERED: ACETAMINOPHEN WITH CODEINE 1 TAB TAB PO PRN (16:30)
[2021-08-16 17:00] LABS: HEMATOCRIT 32.6 % (36-48)
[2021-08-16] MEDS ORDERED: MECLIZINE HCL 25 MG TABLET PO PRN (17:00)
[2021-08-16] MEDS ORDERED: [UNRECOGNIZED DRUG - REMARK] MISC SCH (17:00)
[2021-08-16] MEDS ORDERED: LORATADINE 10 MG TABLET PO PRN (17:00)
[2021-08-16] MEDS ORDERED: IPRATROPIUM/ALBUTEROL SULFATE 3 ML SOLUTION IH PRN (17:00)
[2021-08-16] MEDS ORDERED: ACETAMINOPHEN WITH CODEINE 1 TAB TAB PO ONE (17:30)
[2021-08-16] MEDS ORDERED: PANTOPRAZOLE 40 MG TAB DR PO SCH (18:00)
[2021-08-16] MEDS ORDERED: BUDESONIDE 0.5 MG/2 ML INH IH ONE (19:00)
[2021-08-16] MEDS ORDERED: ONDANSETRON 4MG INJ IVP PRN (19:30)
[2021-08-16] MEDS: TIZANIDINE HCL 2 MG TABLET PO SCH (21:00)
[2021-08-16] MEDS ORDERED: ATORVASTATIN 40 MG TABLET PO SCH (21:00)
[2021-08-16] MEDS ORDERED: LEVOFLOXACIN 500 MG TABLET PO SCH (21:00)
[2021-08-16] MEDS ORDERED: BUDESONIDE 0.5 MG/2 ML INH IH SCH (21:00)
[2021-08-16] MEDS: TICAGRELOR 90 MG TABLET PO SCH (21:15)
[2021-08-17 00:09] VITALS: BP 123/48
[2021-08-17 03:09] VITALS: BP 125/45
[2021-08-17 03:55] LABS: BASOPHILS % (AUTO) 0.1 % (0.0-5.0); EOSINOPHILS % (AUTO) 1.3 % (0.0-8.0); HEMATOCRIT 28.9 % (36-48); LYMPHOCYTES % (AUTO) 19.4 % (21.0-51.0); MEAN CORPUSCULAR HEMOGLOBIN 28.1 pg (27.0-33.0); MEAN CORPUSCULAR HGB CONC 32.2 g/dL (32.0-36.0); MEAN CORPUSCULAR VOLUME 87.3 fL (79-99); MONOCYTES % (AUTO) 6.9 % (3.0-13.0); NEUTROPHILS % (AUTO) 72.2 % (40.0-77.0); PLATELET COUNT (AUTO) 232 K/uL (130-400); RED BLOOD CELL COUNT(AUTO) 3.31 MIL/uL (4.00-5.50); RED CELL DISTRIBUTION WIDTH 15.5 % (11.0-15.5); WHITE BLOOD COUNT (AUTO) 7.6 K/uL (4.8-10.8)
[2021-08-17 04:12] LABS: ALBUMIN 3.1 g/dL (3.5-5.0); BILIRUBIN,TOTAL 0.6 mg/dL (0.2-1.0); MAGNESIUM 1.8 mg/dL (1.80-2.40); POTASSIUM 4.4 mmol/L (3.5-5.1); TOTAL PROTEIN, SERUM 6.3 g/dL (6.0-8.3)
[2021-08-17 08:07] VITALS: BP 121/44
[2021-08-17] MEDS: TICAGRELOR 90 MG TABLET PO SCH (08:42)
[2021-08-17] MEDS: TIZANIDINE HCL 2 MG TABLET PO SCH (08:43)
[2021-08-17] MEDS ORDERED: [UNRECOGNIZED DRUG - OTHER] PO SCH (09:00)
[2021-08-17] MEDS ORDERED: PANTOPRAZOLE 40 MG TAB DR PO SCH (09:00)
[2021-08-17] MEDS ORDERED: IRON PO SCH (09:00)
[2021-08-17] MEDS ORDERED: HERBAL CMPLX PO SCH (09:00)
[2021-08-17] MEDS ORDERED: ASPIRIN 81 MG EC TAB PO SCH (09:00)
[2021-08-17] MEDS ORDERED: FERROUS SULFATE 325 MG TABLET.DR PO SCH (09:00)
[2021-08-17] MEDS ORDERED: MV MN PO SCH (09:00)
[2021-08-17] MEDS ORDERED: METOPROLOL TARTRATE 50 MG TAB PO SCH (09:00)
[2021-08-17] MEDS ORDERED: LEVO250T43 PO (09:50)
== END 2021-08-17 11:20 | disposition home or self-care (01) ==
LOC: DAH 06:36 → DAHIP 06:37 → DAH 06:37 → 2DH 18:16
PROVIDERS: ADMIT Internal Medicine; ATTEND Internal Medicine
DX: T82.856A Stenosis of peripheral vascular stent, initial encounter (principal); I73.9 Peripheral vascular disease, unspecified; N39.0 Urinary tract infection, site not specified; B96.1 Klebsiella pneumoniae [K. pneumoniae] as the cause of diseases classified elsewhere; I25.10 Atherosclerotic heart disease of native coronary artery without angina pectoris; I10 Essential (primary) hypertension; E78.5 Hyperlipidemia, unspecified; I21.4 Non-ST elevation (NSTEMI) myocardial infarction; E11.51 Type 2 diabetes mellitus with diabetic peripheral angiopathy without gangrene; I25.2 Old myocardial infarction; I63.9 Cerebral infarction, unspecified; I70.8 Atherosclerosis of other arteries; J45.909 Unspecified asthma, uncomplicated; Z79.02 Long term (current) use of antithrombotics/antiplatelets; Z79.82 Long term (current) use of aspirin; Z88.0 Allergy status to penicillin; Z79.899 Other long term (current) drug therapy; Z87.891 Personal history of nicotine dependence; Z86.73 Personal history of transient ischemic attack (TIA), and cerebral infarction without residual deficits; Z88.6 Allergy status to analgesic agent; Z90.49 Acquired absence of other specified parts of digestive tract; Z90.710 Acquired absence of both cervix and uterus; Z96.641 Presence of right artificial hip joint
CPT/HCPCS: 36200; 36415; 37236; 71045; 75625; 80048; 80053; 81001; 82948; 83735; 85014; 85018; 85025; 85347; 85610; 85730; 87077; 87088; 87186; 93005; 94640; 94664; 96374; 99156; 99157; A4606; C1769; C1874; C1887; C1894; G0378; J0461; J1644; J2175; J2250; J3010; J3370; J3490; J7030; J7050; Q9967

== ENCOUNTER 2021-09-24 06:37 | Day surgery (SDC) | payer OTHER, MEDICARE ==
[2021-09-22 10:36] LABS: BASOPHILS % (AUTO) 0.3 % (0.0-5.0); EOSINOPHILS % (AUTO) 3.1 % (0.0-8.0); HEMATOCRIT 36.5 % (36-48); LYMPHOCYTES % (AUTO) 22.8 % (21.0-51.0); MEAN CORPUSCULAR HEMOGLOBIN 27.8 pg (27.0-33.0); MEAN CORPUSCULAR HGB CONC 29.9 g/dL (32.0-36.0); MEAN CORPUSCULAR VOLUME 93.1 fL (79-99); NEUTROPHILS % (AUTO) 67.5 % (40.0-77.0); PLATELET COUNT (AUTO) 268 K/uL (130-400); RED BLOOD CELL COUNT(AUTO) 3.92 MIL/uL (4.00-5.50); RED CELL DISTRIBUTION WIDTH 15.5 % (11.0-15.5); WHITE BLOOD COUNT (AUTO) 7.4 K/uL (4.8-10.8)
[2021-09-22 10:49] LABS: INR 0.94 (0.85-1.15); PROTHROMBIN TIME 10.3 SEC (9.6-11.6)
[2021-09-22 10:51] LABS: CREATININE 0.9 mg/dL (0.5-1.5); PARTIAL THROMBOPLASTIN TIME 26.5 SEC (26.3-35.5); POTASSIUM 4.4 mmol/L (3.5-5.1)
[2021-09-22 11:22] LABS: APPEARANCE,URINE Clear (CLEAR); BILIRUBIN,URINE Negative (NEGATIVE); COLOR,URINE Dark Yellow (YELLOW); GLUCOSE, URINE (UA) Negative (NEGATIVE); KETONES,URINE Trace mg/dL (NEGATIVE); LEUKOCYTE ESTERASE ,URINE Negative (NEGATIVE); NITRATE,URINE Negative (NEGATIVE); OCCULT BLOOD,URINE Negative (NEGATIVE); PROTEIN,URINE POS 2+ mg/dL (NEGATIVE); UROBILINOGEN,URINE 0.2 mg/dL (0.2-1.0)
[2021-09-22 11:33] LABS: BACTERIA,URINE Rare /HPF (None Seen); RBC,URINE 0-1 /HPF (0-1); SQUAMOUS EPITHELIAL CELL,UR Few /HPF (0-2); WBC,URINE 0-1 /HPF (0-1)
[2021-09-23 09:49] VITALS: BP 178/55
[~2021-09-24] VITALS: Ht 152.4 cm; Wt 53.3 kg
[2021-09-24] VITALS (8 sets, daily range): BP systolic 138–178; BP diastolic 36–60
[~2021-09-24 06:37] MED LIST changes: -ALBU0.63 IH
[2021-09-24] MEDS ORDERED: 0.9%NACL 1000ML 1,000 ML IV ONE (07:13)
[2021-09-24] MEDS ORDERED: IODIXANOL 320 MG/ML 100 ML VIAL ONE (09:35)
[2021-09-24] MEDS ORDERED: NICARDIPINE 25MG INJ IV ONE (09:35)
[2021-09-24] MEDS ORDERED: NITROGLYCERIN 50MG VIAL ONE (09:35)
[2021-09-24] MEDS ORDERED: HEPARIN 10,000 UNIT/10ML (1,000 UNIT/ML) VIAL ONE ×2 (09:35→10:46)
[2021-09-24] MEDS ORDERED: MIDAZOLAM HCL 1 MG/ML 2ML VIAL ONE ×2 (09:35→11:20)
[2021-09-24] MEDS ORDERED: FENTANYL CITRATE PF 50 MCG/1 ML 2ML VIAL ONE ×2 (09:36→11:20)
[2021-09-24] MEDS ORDERED: ACETAMINOPHEN WITH CODEINE 1 TAB TAB ONE (13:49)
== END 2021-09-24 16:58 | disposition home or self-care (01) ==
LOC: DAH 06:37
PROVIDERS: ATTEND Internal Medicine Cardiovascular Disease
DX: I70.201 Unspecified atherosclerosis of native arteries of extremities, right leg (principal); I25.10 Atherosclerotic heart disease of native coronary artery without angina pectoris; I25.2 Old myocardial infarction; E78.2 Mixed hyperlipidemia; J45.909 Unspecified asthma, uncomplicated; Z96.641 Presence of right artificial hip joint; Z88.0 Allergy status to penicillin; Z88.6 Allergy status to analgesic agent; Z88.8 Allergy status to other drugs, medicaments and biological substances; Z79.01 Long term (current) use of anticoagulants; Z79.899 Other long term (current) drug therapy
CPT/HCPCS: 36245; 36415 ×2; 37252; 71045; 75710; 80048; 81001; 85025; 85347 ×2; 85610; 85730; 93005; A4215; A4216; A4221; A4222; A4223 ×3; A4663; C1753 ×2; C1769 ×6; C1887 ×2; C1894 ×2; J1644 ×3; J2250; J3010; J3490 ×2; J7030; Q9967; 99156; 99157